=== PATIENT | male | born 1975 | race Caucasian/White ===

== ENCOUNTER 2021-08-15 10:42 | Emergency (ER) | payer OTHER, SELFPAY ==
--- NOTE | ~2021-08-15 | US_ITS ---
EXAMINATION: US SCROTUM CLINICAL INFORMATION: Right testicle pain and swelling. COMPARISON: None TECHNIQUE: A sonogram of the scrotum was performed assessing bah-scale appearance and color Doppler flow. Spectral Doppler analysis of the arterial and venous flow were performed in the testes bilaterally. FINDINGS: RIGHT: Right testicle measures 4.5 x 3.1 x 3.6 cm, volume 26 mL. No focal testicular parenchymal lesions are visualized. Spectral Doppler analysis of the arterial and venous flow is normal in the right testis. There is a complex right hydrocele with septations. The right epididymis is enlarged. The right epididymis does not appear hypervascular. The spermatic cord and vas deferens in the inguinal canal appears enlarged and hypervascular. There is no right varicocele. LEFT: Left testicle measures 4.9 x 2.4 x 3.2 cm, volume 20 mL. No focal testicular parenchymal lesions are visualized. Spectral Doppler analysis of the arterial and venous flow is normal in the left testis. Left epididymal head is normal in size. There may be a left appendix epididymis. No left hydrocele is seen. There is a left varicocele. Left epididymal Doppler flow is normal. US/US scrotum doppler IMPRESSION: No evidence of torsion. Complex right hydrocele. Enlarged right epididymis and enlarged hypervascular right spermatic cord /vas deferens suggestive of epididymitis and vasitis. Follow-up imaging following treatment recommended. Left varicocele.
--- NOTE | ~2021-08-15 | US_ITS ---
EXAMINATION: US SCROTUM CLINICAL INFORMATION: Right testicle pain and swelling. COMPARISON: None TECHNIQUE: A sonogram of the scrotum was performed assessing bah-scale appearance and color Doppler flow. Spectral Doppler analysis of the arterial and venous flow were performed in the testes bilaterally. FINDINGS: RIGHT: Right testicle measures 4.5 x 3.1 x 3.6 cm, volume 26 mL. No focal testicular parenchymal lesions are visualized. Spectral Doppler analysis of the arterial and venous flow is normal in the right testis. There is a complex right hydrocele with septations. The right epididymis is enlarged. The right epididymis does not appear hypervascular. The spermatic cord and vas deferens in the inguinal canal appears enlarged and hypervascular. There is no right varicocele. LEFT: Left testicle measures 4.9 x 2.4 x 3.2 cm, volume 20 mL. No focal testicular parenchymal lesions are visualized. Spectral Doppler analysis of the arterial and venous flow is normal in the left testis. Left epididymal head is normal in size. There may be a left appendix epididymis. No left hydrocele is seen. There is a left varicocele. Left epididymal Doppler flow is normal. US/US scrotum IMPRESSION: No evidence of torsion. Complex right hydrocele. Enlarged right epididymis and enlarged hypervascular right spermatic cord /vas deferens suggestive of epididymitis and vasitis. Follow-up imaging following treatment recommended. Left varicocele.
[2021-08-15 10:45] VITALS: BP 143/81; PULSE 84; RESP 16; TEMP 36.7; O2SAT 98
[2021-08-15 11:17] VITALS: BP 143/81; PULSE 84; RESP 18; TEMP 36.6; O2SAT 98; BMI 23.0
--- NOTE | 2021-08-15 12:20 | ED.MALEGU ---
HPI - Male Genitourinary General Chief complaint: Urogenital-Male Stated complaint: TESTICLE SWOLLEN Time Seen by Provider: 08/15/21 12:15 Source: patient Mode of arrival: ambulatory History of Present Illness HPI Narrative: 45-year-old male with no significant past medical history presenting to the ED complaining of right testicular swelling and pain since last night. Admits pain radiating to suprapubic region. Denies trauma/injury or fall. Denies fever, chills, dysuria/hematuria, flank pain, abdominal pain, nausea/vomiting, penile discharge. Is sexually active with 1 female partner, denies concern for STI MD Complaint: testicle pain and testicle swelling Related Data Previous Rx's Medication Instructions Recorded acetaminophen 500 mg tablet 500 mg PO Q6H PRN #20 tab 08/15/21 (Tylenol Extra Strength) levofloxacin 500 mg tablet 500 mg PO DAILY 10 Days #10 tab 08/15/21 naproxen 500 mg tablet 500 mg PO BID PRN 10 Days #20 tab 08/15/21 Allergies Allergy/AdvReac Type Severity Reaction Status Date / Time No Known Allergies Allergy Unverified 06/18/20 16:35 [No Known Allergies*] Review of Systems Review of Systems: Constitutional: No Fever, No Chills, No Fatigue, No Malaise ENT/Mouth: No Ear Pain, No Nasal Congestion, No sore throat, No Rhinorrhea Eyes: No Eye Pain, No Swelling, No Redness Cardiovascular: No Chest Pain, No SOB, No Palpitations Respiratory: No Cough, No Dyspnea Gastrointestinal: No Nausea, No Vomiting, No Diarrhea, No Constipation, No Abdominal pain Genitourinary: + testicular pain and swelling, No Dysuria, No Hematuria, No Urinary Incontinence, No Urgency, No Flank Pain, No Urinary Flow Changes, No penile discharge/lesions Musculoskeletal: No joint pain, No Myalgias, No Joint Swelling Skin: No Skin Lesions, No rash Neuro: No Weakness, No Dizziness, No Headache Yes all other systems are reviewed and are negative [facility] Past Medical History Attestation statement: The following information was validated with the patient. Social History Social History Advance Directives: No Advance Directives Information Provided: No Physical Exam Vital Signs: Vital Signs: Last Vital Signs Temp 98 F 08/15/21 11:17 Pulse 84 08/15/21 11:17 Resp 18 08/15/21 11:17 BP 143/81 H 08/15/21 11:17 Pulse Ox 98 08/15/21 11:17 Body Mass Index 23.0 Const: General: cooperative, healthy appearing and no acute distress Orientation/consciousness: patient oriented x3 Limitations: no limitations HENMT: Head: Yes normal to inspection Ears: hearing grossly normal bilaterally General nose exam: Normal external nose present Face and sinus: Yes normal facial exam Eyes: General: appearance normal, both eyes and all related structures EOM: EOMs intact bilaterally Neck: Neck: Yes normal visual inspection and Yes no meningeal signs Resp: Effort & Inspection: normal respiratory effort and no respiratory distress Auscultation: clear to auscultation bilaterally Cardio: Rate: regular rate Heart sounds: S1 normal heart sound present and S2 normal heart sound present GI: Inspection: Yes normal to inspection Palpation (GI): Soft to palpation, nontender, no guarding and not rigid : Other: Tender nodule upper pole of right testicle General: Yes no CVA tenderness Penis: normal penis Scrotum: not erythematous and no inguinal hernias Testes: Enlarged testicle(s) present on the right and testicular tenderness on the right Back/Spine/Pelvis: Back: no CVA tenderness Skin: Rashes: no rashes Wounds: no wounds Neuro: General: patient oriented x3 and no meningeal signs Gait exam (Neuro): Normal gait present Extrem: General: Yes normal to inspection Course Course Course Narrative: -no leukocytosis, labs otherwise unremarkable. UA negative -CT/NG pending 1440--US scrotum doppler IMPRESSION: No evidence of torsion. Complex right hydrocele. Enlarged right epididymis and enlarged hypervascular right spermatic cord /vas deferens suggestive of epididymitis and vasitis. Follow-up imaging following treatment recommended. Left varicocele. MDM - Male Genitourinary MDM Narrative Medical decision making narrative: 45-year-old male with no significant past medical history presenting to the ED complaining of right testicular swelling and pain since last night. On exam vital signs stable, abdomen soft/nontender, right testicular swelling, pain, and tender nodule, no appreciable hernia. Concern for testicular torsion vs epididymitis/orchitis. R/o UTI. lower concern for hernia/renal stone/pyelo Plan: Labs, UA, testicular ultrasound Medical Records Attestation: I reviewed the patient's medical records. Lab Data Attestation: I reviewed the patient's lab results. Result diagrams: 08/15/21 12:21 08/15/21 12:21 Labs: Lab Results 08/15/21 08/15/21 08/15/21 Range/Units 12:21 12:21 13:29 WBC 8.4 (4.8-10.8) X10*3/uL RBC 5.37 (4.60-5.80) X10*6/uL Hgb 15.3 (14.0-18.0) g/dl Hct 44.5 (42.0-52.0) % MCV 82.9 (80.0-98.0) fL MCH 28.5 (27.0-33.0) pg MCHC 34.4 (31.0-36.0) g/dl RDW 11.9 (11.0-16.0) % Plt Count 190 (160-400) X10*3/uL MPV 9.4 (9.4-12.4) fL Immature Gran % (Auto) 0.2 (0.0-0.4) % Neut % (Auto) 78.7 H (45-73) % Lymph % (Auto) 12.3 L (20-40) % [place] % (Auto) 6.1 (2-11) % Eos % (Auto) 2.3 (0-4) % Baso % (Auto) 0.4 (0-2) % Lymph # (Auto) 1.0 L (1.2-4.9) X10*3/uL [place] # (Auto) 0.5 (0.1-1.2) X10*3/uL Eos # (Auto) 0.2 (0.0-0.4) X10*3/uL Baso # (Auto) 0.0 (0.0-0.2) X10*3/uL Abs Immat Gran (auto) 0.02 (0.00-0.03) X10*3/uL Absolute Neuts (auto) 6.6 (2.0-8.3) x10*3/uL Absolute Nucleated RBC 0.000 (0.0-0.012) X10*3/uL Nucleated RBC % (auto) 0.0 (0.0-0.2) /100WBC Sodium 139 (135-145) mmol/L Potassium 4.9 (3.3-5.1) mmol/L Chloride 103 (96-108) mmol/L Carbon Dioxide 28 (22-29) mmol/L Anion Gap 13 (12-20) BUN 12 (9-16) mg/dL Creatinine 0.94 (0.5-1.4) mg/dL Estim Creat Clear Calc 106.1 Estimated GFR > 60 Random Glucose 112 (60-115) mg/dL Calcium 9.0 (8.4-10.2) mg/dL Magnesium 2.1 (1.6-2.6) mg/dL Total Bilirubin 0.8 (0.0-1.0) mg/dL Direct Bilirubin 0.3 (0.0-0.5) mg/dL AST 16 (5-37) U/L ALT 22 (0-40) U/L Alkaline Phosphatase 58 (39-117) U/L Total Protein 6.9 (6.5-8.0) g/dL Albumin 4.4 (3.5-5.0) g/dL Lipase 26 (8-78) U/L Urine Color YELLOW Urine Appearance HAZY Urine pH 7.0 (5.0-8.0) Ur Specific [place] 1.015 (1.005-1.025) Urine Protein NEG (NEG-TRACE) MG/DL Urine Glucose (UA) NEG (NEG) MG/DL Urine Ketones NEG (NEG) MG/DL Urine Blood NEG (NEG) Urine Nitrite NEG (NEG) Ur Leukocyte Esterase NEG (NEG) Discharge Plan Discharge Clinical Impression: Acute epididymitis, Vasitis Patient Disposition: Home, Self-Care Instructions: Epididymitis (ED) Additional Instructions: Your blood work and urine were reassuring Your ultrasound is suggestive of epididymitis and vasitis, Levaquin will help treat this infection 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 as well as ice and anti-inflammatory medications Please follow-up with urology It is recommended you have a repeat ultrasound following treatment If symptoms persist/worsen, pain becomes unbearable, testicle becomes discolored, you are unable to urinate you have fever, persistent nausea or vomiting please return to the ED Prescriptions: New levofloxacin 500 mg tablet 500 mg PO DAILY 10 Days Qty: 10 RF: 0 acetaminophen [Tylenol Extra Strength] 500 mg tablet 500 mg PO Q6H PRN (Reason: pain or fever) Qty: 20 RF: 0 naproxen 500 mg tablet 500 mg PO BID PRN (Reason: pain) 10 Days Qty: 20 RF: 0 Referrals: Richard Saunders MD [Physician] - 1 week
[2021-08-15 12:26] LABS: MANUAL DIFF FLAG NO
[2021-08-15 12:27] LABS: Basophils Percent Auto 0.4 % (0-2); Eosinophils Absolute Auto 0.2 X10*3/uL (0.0-0.4); Eosinophils Percent Auto 2.3 % (0-4); Hematocrit 44.5 % (42.0-52.0); Hemoglobin 15.3 g/dl (14.0-18.0); Imm Gran Abs Auto 0.02 X10*3/uL (0.00-0.03); Imm Gran Pct Auto 0.2 % (0.0-0.4); Lymphocytes Percent Auto 12.3 % (20-40); Mean Corpuscular HGB Conc 34.4 g/dl (31.0-36.0); Mean Corpuscular Hemoglobin 28.5 pg (27.0-33.0); Mean Corpuscular Volume 82.9 fL (80.0-98.0); Mean Platelet Volume 9.4 fL (9.4-12.4); Monocytes Absolute Auto 0.5 X10*3/uL (0.1-1.2); Monocytes Percent Auto 6.1 % (2-11); Neutrophils Absolute Auto 6.6 x10*3/uL (2.0-8.3); Neutrophils Percent Auto 78.7 % (45-73); Platelet Count 190 X10*3/uL (160-400); Red Blood Count 5.37 X10*6/uL (4.60-5.80); Red Cell Distribution Width 11.9 % (11.0-16.0); White Blood Count 8.4 X10*3/uL (4.8-10.8)
[2021-08-15 13:10] LABS: Alanine Aminotransferase 22 U/L (0-40); Albumin Level 4.4 g/dL (3.5-5.0); Alkaline Phosphatase 58 U/L (39-117); Anion Gap 13 (12-20); Aspartate Amino Transferase 16 U/L (5-37); Bilirubin Direct 0.3 mg/dL (0.0-0.5); Bilirubin Total 0.8 mg/dL (0.0-1.0); Blood Urea Nitrogen 12 mg/dL (9-16); Carbon Dioxide 28 mmol/L (22-29); Chloride 103 mmol/L (96-108); Creatinine Clr Calc Pharmacy 106.1; Estimated Glomerular Filt Rate > 60; Glucose Random 112 mg/dL (60-115); Lipase 26 U/L (8-78); Magnesium 2.1 mg/dL (1.6-2.6); Potassium 4.9 mmol/L (3.3-5.1); Sodium 139 mmol/L (135-145); Total Protein 6.9 g/dL (6.5-8.0)
[2021-08-15] MEDS: Ketorolac Tromethamine 15 MG/ML VIAL 30 MG IM (13:27)
[2021-08-15 13:43] LABS: Appearance Urine HAZY; Color Urine YELLOW; Glucose Urine UA NEG (NEG); Leukocyte Esterase Urine NEG (NEG); Nitrite Urine NEG (NEG); Specific Gravity - Urine 1.015 (1.005-1.025); Urine Blood NEG (NEG); Urine Ketones NEG (NEG); Urine Protein NEG (NEG-TRACE)
[2021-08-15] MEDS: levoFLOXacin 500 MG TABLET PO (14:45)
[2021-08-16 09:42] LABS: CT PCR NOT DETECTED (Not Detect.); NG PCR NOT DETECTED (Not Detect.)
== END 2021-08-15 14:59 | disposition home or self-care (01) ==
PROVIDERS: Physician Assistant; Emergency Provider Emergency Medicine; PCP Internal Medicine
DX: N45.1 Epididymitis (principal); N49.1 Inflammatory disorders of spermatic cord, tunica vaginalis and vas deferens
CPT/HCPCS: 36415; 76870; 80048; 80076; 81003; 83690; 83735; 85025; 87491; 87591; 93975; 96372; 99284; J1885